=== PATIENT | female | born 1995 | race Caucasian/White ===

== ENCOUNTER 2017-02-25 13:59 | Emergency (ER) | payer OTHER ==
[~2017-02-25] VITALS: Ht 165.1 cm; Wt 72.6 kg
[2017-02-25 14:00] VITALS: BP 138/90
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
[2017-02-25] MEDS ORDERED: Ketorolac 30mg Inj IM ONE (14:15)
[2017-02-25] MEDS ORDERED: Methocarbamol 750mg tab ORAL ONE (14:15)
[2017-02-25] MEDS ORDERED: IBUPROFEN600 MG ORAL (14:37)
[2017-02-25] MEDS ORDERED: ROBAXIN-750750 MG PO (14:37)
[2017-02-25 15:34] VITALS: BP 138/90
--- NOTE | 2017-02-26 10:15 | Diagnostic Imaging Report ---
Indication: Chest pain Technique: XRAY Chest 1v Comparison: None. Findings: The cardiomediastinal silhouette is normal. The lungs are clear. There is no evidence of pleural fluid. The bones are unremarkable. Impression: Normal chest.
== END 2017-02-25 15:34 | disposition home or self-care (01) ==
LOC: EDBD 13:59 → EMR 14:20
DX: M54.2 Cervicalgia (principal); M25.511 Pain in right shoulder; R07.9 Chest pain, unspecified; V43.62XA Car passenger injured in collision with other type car in traffic accident, initial encounter; Y92.410 Unspecified street and highway as the place of occurrence of the external cause
CPT/HCPCS: 71010; 96372; 99284; J1885